=== PATIENT | female | born 2000 | race Two or more races ===

== ENCOUNTER 2023-10-26 22:27 | Emergency (ER) | payer OTHER ==
[~2023-10-26] VITALS: Ht 162.6 cm; Wt 49.4 kg
[2023-10-26] MEDS ORDERED: FOLIC ACID0.8 M1 (22:35)
[2023-10-26] MEDS ORDERED: PRENA1 TRUE CO1 EACH (22:36)
[2023-10-26] MEDS ORDERED: FAMOTIDINE/PF 20 MG in 0.9 % SODIUM CHLORIDE 8 ML IV PUSH STA (23:05)
[2023-10-26] MEDS ORDERED: RINGERS SOLUTION,LACTATED 1,000 ML IV SCH (23:15)
[2023-10-26] MEDS ORDERED: ONDANSETRON HCL 2 MG/ML VIAL IV ONE (23:15)
[2023-10-26 23:20] LABS: HEMATOCRIT 36.5 % (36.0-45.00); HEMOGLOBIN 12.6 g/dL (12.0-15.00); MEAN CELL VOLUME 91.4 fL (80.00-100.00); MEAN CORPUSCULAR HEMOGLOBIN 31.6 pg (27.00-32.0); MEAN CORPUSCULAR HGB CONC 34.6 g/dl (32.0-36.0); PLATELET COUNT 230 K/uL (150-450); RED CELL DISTRIBUTION WIDTH 13.1 % (11.5-14.5)
[2023-10-26 23:57] LABS: ALBUMIN 3.8 gm/dL (3.4-5.0); BILIRUBIN TOTAL 0.49 mg/dL (0.3-1.2); CALCIUM 9.7 mg/dL (8.5-10.1); CREATININE SERUM 0.59 mg/dL (0.55-1.02); GFR 127.46; POTASSIUM 3.76 mEq/L (3.5-5.1); TOTAL PROTEIN 7.8 gm/dL (6.4-8.2)
[2023-10-27] MEDS ORDERED: PEPCID40 MG PO ×2 (03:46→03:47)
[2023-10-27] MEDS ORDERED: ONDANSETRON ODT4 MG PO (03:46)
== END 2023-10-27 03:50 ==
LOC: ER 22:28
PROVIDERS: General Practice
DX: O21.0 Mild hyperemesis gravidarum (principal); Z3A.12 12 weeks gestation of pregnancy

== ENCOUNTER 2023-11-13 19:34 | Emergency (ER) | payer OTHER ==
[~2023-11-13] VITALS: Ht 162.6 cm; Wt 50.8 kg
[~2023-11-13 19:34] MED LIST: FOLIC ACID0.8 M1; ONDANSETRON ODT4 MG PO; PEPCID40 MG PO; PRENA1 TRUE CO1 EACH
[2023-11-13] MEDS ORDERED: 0.9 % SODIUM CHLORIDE 1,000 ML IV SCH (20:45)
[2023-11-13 22:27] LABS: HEMATOCRIT 33.1 % (36.0-45.00); HEMOGLOBIN 11.5 g/dL (12.0-15.00); MEAN CELL VOLUME 94.1 fL (80.00-100.00); MEAN CORPUSCULAR HEMOGLOBIN 32.5 pg (27.00-32.0); MEAN CORPUSCULAR HGB CONC 34.6 g/dl (32.0-36.0); PLATELET COUNT 202 K/uL (150-450); RED BLOOD COUNT 3.52 M/uL (4.00-6.00); RED CELL DISTRIBUTION WIDTH 13.3 % (11.5-14.5)
[2023-11-13 23:02] LABS: CALCIUM 8.9 mg/dL (8.5-10.1); CREATININE SERUM 0.46 mg/dL (0.55-1.02); GFR 169.87; POTASSIUM 3.44 mEq/L (3.5-5.1)
[2023-11-13 23:09] LABS: PH,URINE 6.5 (5.0-8.0); URINE APPEARANCE Clear; URINE BILIRRUBIN Negative (NEGATIVE); URINE BLOOD Negative; URINE COLOR Yellow; URINE GLUCOSE Negative (NEGATIVE); URINE LEUKOCYTE Negative; URINE NITRATE Negative; URINE PROTEIN Negative (NEGATIVE)
[2023-11-13 23:13] LABS: URINE BACTERIA 369.1 uL (0.0-1933); URINE EPITHELIAL CELLS 23.6 uL (0.0-38.8); URINE RBC 6.8 uL (0.0-20.8); URINE WBC 13.2 uL (0.0-23.2)
[2023-11-14] MEDS ORDERED: MIRALAX510 GM PO (02:59)
== END 2023-11-14 03:08 ==
LOC: ER 19:34
PROVIDERS: Emergency Medicine
DX: R10.2 Pelvic and perineal pain (principal); Z33.1 Pregnant state, incidental; Z3A.15 15 weeks gestation of pregnancy

== ENCOUNTER 2023-12-09 15:35 | Outpatient (CLI) | payer OTHER ==
[~2023-12-09 15:35] MED LIST changes: +MIRALAX510 GM PO
== END 2023-12-09 15:39 | disposition home or self-care (01) ==
LOC: PRENATAL 15:35
PROVIDERS: ATTEND Obstetrics & Gynecology Maternal & Fetal Medicine
DX: O35.3XX0 Maternal care for (suspected) damage to fetus from viral disease in mother, not applicable or unspecified (principal); O44.00 Complete placenta previa NOS or without hemorrhage, unspecified trimester; Z3A.19 19 weeks gestation of pregnancy

== ENCOUNTER 2024-03-09 13:50 | Outpatient (CLI) | payer OTHER | END 2024-03-09 13:52 | disposition home or self-care (01) | LOC: PRENATAL 13:50 | PROVIDERS: ATTEND Obstetrics & Gynecology Maternal & Fetal Medicine | DX: O26.849 Uterine size-date discrepancy, unspecified trimester (principal); O36.8199 Decreased fetal movements, unspecified trimester, other fetus; O99.019 Anemia complicating pregnancy, unspecified trimester; Z3A.32 32 weeks gestation of pregnancy ==

== ENCOUNTER → 2024-04-03 13:33 | Outpatient (CLI) | payer OTHER | END | disposition home or self-care (01) | LOC: PRENATAL 13:33 | PROVIDERS: ATTEND Obstetrics & Gynecology Maternal & Fetal Medicine | DX: Z76.1 Encounter for health supervision and care of foundling (principal) ==

== ENCOUNTER 2024-04-24 19:31 | Inpatient (IN) | payer OTHER ==
[~2024-04-24] VITALS: Ht 162.6 cm; Wt 66.2 kg
[2024-04-24 19:37] VITALS: BP 110/70
[2024-04-24 20:39] LABS: PARTIAL THROMBOPLASTIN TIME 27.9 SECONDS (22.0-34.0); PROTHROMBIN TIME 10.9 SECONDS (9.0-11.5)
[2024-04-24] MEDS ORDERED: IRON159 MG PO (20:41)
[2024-04-24] MEDS ORDERED: RINGERS SOLUTION,LACTATED 1,000 ML IV SCH (21:00)
[2024-04-24] MEDS ORDERED: MISOPROSTOL 25 MCG TABLET ONE (21:25)
[2024-04-24 21:40] LABS: PH,URINE 6.5 (5.0-8.0); URINE APPEARANCE Cloudy; URINE BILIRRUBIN Negative (NEGATIVE); URINE BLOOD Negative; URINE COLOR Yellow; URINE GLUCOSE Negative (NEGATIVE); URINE KETONE Negative (NEGATIVE); URINE LEUKOCYTE Large; URINE NITRATE Negative; URINE PROTEIN Negative (NEGATIVE)
[2024-04-24 21:44] LABS: URINE EPITHELIAL CELLS 75.2 uL (0.0-38.8); URINE RBC 2.4 uL (0.0-20.8); URINE WBC 312.9 uL (0.0-23.2)
[2024-04-24] MEDS ORDERED: PROMETHAZINE HCL 25 MG/ML AMPUL IV NR (22:00)
[2024-04-24] MEDS ORDERED: MEPERIDINE HCL/PF 50 MG/ML VIAL IV NR (22:00)
[2024-04-24 22:03] LABS: URINE BACTERIA > 9821.5 uL (0.0-1933); URINE CRYSTALS FEW /HPF
[2024-04-24] MEDS ORDERED: MISOPROSTOL 25 MCG TABLET VAG ONE (22:15)
[2024-04-24 23:19] VITALS: BP 113/68
[2024-04-24 23:31] LABS: HEMATOCRIT 31.6 % (36.0-45.00); HEMOGLOBIN 10.2 g/dL (12.0-15.00); MEAN CELL VOLUME 90.3 fL (80.00-100.00); MEAN CORPUSCULAR HEMOGLOBIN 29.1 pg (27.00-32.0); MEAN CORPUSCULAR HGB CONC 32.3 g/dl (32.0-36.0); PLATELET COUNT 144 K/uL (150-450); RED CELL DISTRIBUTION WIDTH 21.4 % (11.5-14.5)
[2024-04-25 03:07] VITALS: BP 122/81
[2024-04-25 07:35] VITALS: BP 117/75
[2024-04-25 11:02] VITALS: BP 116/64
[2024-04-25] MEDS ORDERED: MISOPROSTOL 25 MCG TABLET ONE (11:22)
[2024-04-25] MEDS ORDERED: MISOPROSTOL 25 MCG TABLET VAG STA (11:26)
[2024-04-25 15:33] VITALS: BP 125/68
[2024-04-25] MEDS ORDERED: PROMETHAZINE HCL 25 MG/ML AMPUL IV STA (17:43)
[2024-04-25] MEDS ORDERED: MEPERIDINE HCL/PF 25 MG/ML VIAL IV STA (17:43)
[2024-04-25] MEDS ORDERED: PROMETHAZINE HCL 25 MG/ML AMPUL ONE (17:46)
[2024-04-25 17:54] VITALS: BP 123/64
[2024-04-25] MEDS ORDERED: OXYTOCIN 20 UNITS/500ML RL PIGGYBAG IV ONE (19:00)
[2024-04-25] MEDS ORDERED: OXYTOCIN 20 UNITS/500ML RL PIGGYBAG IV SCH (19:15)
[2024-04-25] MEDS ORDERED: CHLORHEXIDINE GLUCONATE 120 ML BOTTLE TOP ONE (21:27)
[2024-04-25] MEDS ORDERED: ERYTHROMYCIN BASE 1 GM TUBE OP ONE (21:27)
[2024-04-25] MEDS ORDERED: LIDOCAINE HCL 1% 10ML VIAL ONE (21:27)
[2024-04-25 23:10] VITALS: BP 139/77
[2024-04-26] VITALS (7 sets, daily range): BP systolic 96–128; BP diastolic 50–73
[2024-04-26] MEDS ORDERED: OXYTOCIN 10 UNITS/ML VIAL ONE (01:11)
[2024-04-26] MEDS ORDERED: CEFOXITIN SODIUM 2,000 MG VIAL IV ONE (01:45)
[2024-04-26] MEDS ORDERED: CEFOXITIN SODIUM 2,000 MG VIAL IV SCH ×2 (02:20→09:00)
[2024-04-26] MEDS ORDERED: ERYTHROMYCIN BASE 1 GM TUBE OP ONE (02:30)
[2024-04-26] MEDS ORDERED: LIDOCAINE HCL 1% 10ML VIAL IJ ONE (02:30)
[2024-04-26] MEDS ORDERED: OXYTOCIN 1,000 ML IV SCH ×2 (02:30)
[2024-04-26] MEDS ORDERED: CHLORHEXIDINE GLUCONATE 120 ML BOTTLE TOP ONE (02:30)
[2024-04-26] MEDS ORDERED: IBUprofen 600 MG TABLET PO PRN (02:30)
[2024-04-26 07:11] LABS: HEMATOCRIT 35.3 % (36.0-45.00); HEMOGLOBIN 11.3 g/dL (12.0-15.00); MEAN CELL VOLUME 90.3 fL (80.00-100.00); MEAN CORPUSCULAR HEMOGLOBIN 28.9 pg (27.00-32.0); PLATELET COUNT 161 K/uL (150-450); RED BLOOD COUNT 3.91 M/uL (4.00-6.00); RED CELL DISTRIBUTION WIDTH 21.4 % (11.5-14.5)
[2024-04-26] MEDS ORDERED: DOCUSATE SODIUM 100MG CAP PO SCH (09:00)
[2024-04-27 01:01] VITALS: BP 111/68
[2024-04-27 09:24] VITALS: BP 103/68
[2024-04-27 16:05] VITALS: BP 114/73
[2024-04-28 01:06] VITALS: BP 133/83
[2024-04-28 09:00] VITALS: BP 112/75
== END 2024-04-28 13:46 | disposition home or self-care (01) | DRG 768 ==
LOC: LDR 19:31 → OB/GYN 04-26 01:56
PROVIDERS: ADMIT Obstetrics & Gynecology; ATTEND Obstetrics & Gynecology
PROC: 3E0P7VZ Introduction of Hormone into Female Reproductive, Via Natural or Artificial Opening (ICD-10-PCS; 2024-04-24)
PROC: 4A1HXCZ Monitoring of Products of Conception, Cardiac Rate, External Approach (ICD-10-PCS; 2024-04-24)
PROC: 3E033VJ Introduction of Other Hormone into Peripheral Vein, Percutaneous Approach (ICD-10-PCS; 2024-04-25)
PROC: 10E0XZZ Delivery of Products of Conception, External Approach (ICD-10-PCS; principal; 2024-04-26)
PROC: 0DQP0ZZ Repair Rectum, Open Approach (ICD-10-PCS; 2024-04-26)
PROC: 0W8NXZZ Division of Female Perineum, External Approach (ICD-10-PCS; 2024-04-26)
DX: O70.3 Fourth degree perineal laceration during delivery (principal); Z37.0 Single live birth; Z3A.39 39 weeks gestation of pregnancy; Z20.822 Contact with and (suspected) exposure to COVID-19